=== PATIENT | female | born 1985 | race Caucasian/White ===

== ENCOUNTER → 2016-10-15 | Day surgery (SDC) | payer MEDICAID ==
[2016-10-05 19:43] VITALS: BMI 52.3
[~2016-10-15] MED LIST: BUPIVACAINE 0.5% 30 ML VIAL ONE; CEFAZOLIN 1 GM VIAL ONE; DEXAMETHASONE 4 MG/ML VIAL IV ONE; FENTANYL 100 MCG/2 ML VIAL IV PRN; GLYCOPYRROLATE 1 MG VIAL IM ONE; HYDROmorphone 1 MG INJECTION IV PRN; HYDROmorphone 2 MG/ML VIAL IM ONE; LABETALOL 20 MG/4 ML SYRINGE IV PRN; MEPERIDINE 25 MG/ML TUBEX IV PRN; MIDAZOLAM 2 MG/2 ML VIAL IV ONE; NEOSTIGMINE 1 MG/1 ML (1:1000) INJ 10 ML MDV IM ONE; ONDANSETRON HCL 4 MG ODT TAB PO PRN; ONDANSETRON HCL 4 MG/2 ML VIAL IV ONE; ONDANSETRON HCL 4 MG/2 ML VIAL IV PRN; OXYCODONE HCL 5 MG TABLET ONE; PROPOFOL 200 MG/20 ML VIAL IV ONE; ROCURONIUM 50 MG/5 ML VIAL IV ONE; hydrALAZINE 20 MG/ML VIAL IV PRN
[2016-10-15] MEDS: CEFAZOLIN 1 GM VIAL ONE ×2 (06:01→07:53)
--- NOTE | 2016-10-15 07:08 | HIM.ANES ---
Anesthesia Evaluation & Plan Diagnoses: UNIL INGUINAL HERNIA, W/O OBST OR GANGR, NOT SPCF RECUR (10/15/16) Consented Procedure: LEFT INGUINAL HERNIORRHAPHY POSSIBLY WITH MESH - Focused Review of Systems Cardiac History: No: Hx Cardiac Disorders HEENT: No: Other HEENT Problems Hx Other HEENT Problems: N/A Respiratory: Yes: Hx Recent Cold/Flu (BRONCHITIS.. REMAINS ON ANTIBIOTIC LEVAQUIN) Gastrointestinal: Yes: Hx Gastroesophageal Reflux Disease (TUMS PRN- REPORTS CANT AFFORD OTC MEDS ), Hx Gastrointestinal Disorders Neurological/Musculoskeletal: Yes: Hx Numbness, Tingling, Weakness in Arms & Legs (LT SIDE- REPORTS NUMBNESS TO LT ARM/ LEG FROM PINCHED NERVE) No: Hx Neurological Disorders Other Neurological Problems: N/A Psychological: Yes Hx Anxiety (HX- TEEN), Yes Hx Depression ("no meds needed for years"), Yes Hx Mental/Emotional Disorders Blood/Autoimmune: No: Hx Blood Transfusions, Hx Anemia, Hx AIDS, Hx Hepatitis (type) Smoking Status: Never smoker Other Surgical History: 2007 - Focused Physical Exam NPO since: 10/14/162029 Mallampati: Class II Thyromental Distance: Greater than 3 Neck: Full Range of Motion Dental: Normal - no significant findings Cardiovascular/Chest: Normal Respiratory: Lungs clear Any problems with anesthesia, including nausea and vomiting?: No Any relatives with a history of Malignant Hyperthermia?: No Does patient have a history of Malignant Hyperthermia?: No Beta Juan Antonio given (if appropriate): N/A Does the patient have a history of Motion Sickness-: No Other: Problem List Problem Status Onset Bronchitis Acute PT/PTT/INR/ Urine Test Neg (NEGATIVE) 10/15/16 05:50 Allergies Allergy/AdvReac Type Severity Reaction Status Date / Time shellfish derived Allergy Anaphylaxis Verified 10/15/16 06:00 * Home Medications Medication Instructions Recorded Last Taken Type Meloxicam 15 mg PO DAILY #30 tab 09/11/16 10/13/16 Rx Albuterol Sulfate [Proair Hfa] 2 puff INH QID #1 inhaler 10/05/16 10/12/16 Rx Levofloxacin [Levaquin] 750 mg PO DAILY #10 tablet 10/05/16 10/13/16 Rx Height and Weight Patient's height 5 ft 2 in Patient's weight 129.274 kg BMI 52.3 Vital Signs Temperature 98 F 10/15/16 06:01 Pulse Rate 76 10/15/16 06:01 Respiratory Rate 18 10/15/16 06:01 Blood Pressure 117/76 10/15/16 06:01 Pulse Oxygen Saturation 100 10/15/16 06:01 METS - Level of Activity: Climbing stairs(1 flight),walking level ground, running short distance - Anesthetic Plan Anesthesia Type: General ASA Class: 3 -: I have examined this patient and reviewed the medical record. The patient has been assessed prior to anesthesia. Risks and benefits of anesthesia and anesthetic technique options have been discussed and all questions answered. The patient accepts the risk and desires me to proceed with the planned anesthetic.
--- NOTE | 2016-10-15 08:35 | HIMOPRPT ---
DATE OF PROCEDURE: 10/15/16 PREOPERATIVE DIAGNOSIS: Left inguinal hernia. POSTOPERATIVE DIAGNOSIS: Left inguinal hernia. PROCEDURE: Left inguinal herniorrhaphy with mesh SURGEON: Tirso Vega DO. ANESTHESIA: General endotracheal with Anesthesia monitoring. ANESTHESIOLOGIST: Dr. Maria Elena Hernandez MD DRAINS: None. COMPLICATIONS: None. PATIENT CONDITION: Stable. SPECIMEN: None ESTIMATED BLOOD LOSS: 1 ml INDICATIONS: This is a 31-year-old female with with left inguinal hernia. It was recommended to the patient left inguinal herniorrhaphy with mesh. The risks associated with operation were discussed with the patient in detail to include, but not limited to bleeding, infection, infection of mesh, necessitating removal , injury to intra-abdominal blood vessels, injury to small or large intestine, deep vein thrombosis, resultant pulmonary embolism, perioperative cardiac and respiratory morbidity and mortality, injury to cutaneous nerves involving paresthesia, possibly chronic pain, intracutaneous fistula, and hernia recurrence. All questions were answered. Informed consent was obtained. FINDINGS: The patient had a medium sized indirect left inguinal hernia. No direct component was identified. Bard small plug was placed. PROCEDURE IN DETAIL: APUL KAUR was taken to the operative suite at [facility] and placed in supine position. General anesthesia was induced. After successful completion of this, left inguinal area was clipped free with hair electric clippers. The patient was then sterilely prepped and draped in the usual fashion. All members of surgical team were in agreement of correct patient and correct procedure. Oblique incision was made over the inguinal canal, carried down to the subcutaneous tissue. Bridging vein was doubly clamped, cut between, and clamps were placed with 2-0 silk ties. The Jose's fascia was incised to the length of skin incision. External oblique fascia was incised to the length of skin incision. Spermatic cord was circumferentially isolated, elevated with Hannah drain. The floor of the canal was explored with findings as described above. The ilioinguinal nerve and iliohypogastric nerves were not identified. The hernia sac was dissected free from the round ligament and was entered with no evidence of incarcerated small or large intestine or omentum. It was then closed with running 2-0 Vicryl suture. It was placed back in preperitoneal space. The round ligament was doubly clamped and clamps were replaced with 2-0 Vicryl suture ligature and 2-0 Silk suture ligature at both clamps. Bard small plug was placed within the indirect hernia opening, sutured in place the shelving portion of the inguinal ligament x1 and sutured in place to the internal oblique fascia x2, these with U sutures and with 2-0 Vicryl suture. Onlay mesh was not required as the floor of the canal was intact. The area was irrigated and aspirated dry. Mesh was identified as laying out flat, but not tight. The area was irrigated and aspirated dry. Hemostasis was excellent. External oblique fascia was imbricated to the shelving portion of the inguinal ligament with 2-0 Vicryl suture. The Jose's fascia was closed with plain suture. Skin was closed with 4-0 Monocryl subcuticular stitch after infiltration of anesthetic. Dermabond was applied. Sterile occlusive dressing was applied over this. Anesthesia was reversed. The patient was taken to recovery, having tolerated this procedure well.
[2016-10-15] MEDS: FENTANYL 100 MCG/2 ML VIAL ONE ×2 (08:51→09:00)
[2016-10-15 09:28] VITALS: TEMP 97.5
[2016-10-15 10:57] VITALS: PULSE 76
--- NOTE | 2016-10-15 13:10 | SC.ANESPOS ---
Post-Anesthesia Note LOC: Fully Awake Post-Anesthesia Assessment: Awake, Returned to Baseline, Hemodynamically Stable , Pain Control Adequate Phase I & II Recovery Complete: Yes Apparent Anesthesia Complication: No : N PACU Discharge Time: 09:20 - Vital Signs Blood Pressure: 119/71 Pulse: 76 Resp Rate: 18 O2 Sat: 96 Temp: 97.5 F - Comments Anesthesia Discharge Time Report Time 09:20
[2016-10-15 13:11] VITALS: BP 119/71
== END ==
LOC: SDC 05:39
PROVIDERS: ATTEND Surgery
PROC: 0YU60JZ Supplement Left Inguinal Region with Synthetic Substitute, Open Approach (ICD-10-PCS; principal; 2016-10-15 07:15)
DX: K40.90 Unilateral inguinal hernia, without obstruction or gangrene, not specified as recurrent (principal); K21.9 Gastro-esophageal reflux disease without esophagitis; F41.9 Anxiety disorder, unspecified; Z79.899 Other long term (current) drug therapy
CPT/HCPCS: 49505; 81025; C1781; J0690; J1100; J1170; J2250; J2405; J2710; J3010; J3490